=== PATIENT | female | born 1965 | race Caucasian/White ===

== ENCOUNTER → 2016-07-25 08:31 | Outpatient (CLI) | payer BC ==
[2016-07-25 10:25] LABS: BASOPHILS 0.3 % (0.0-2.0); HEMATOCRIT 41.3 % (36.0-48.0); IMMATURE GRANULOCYTES 0.2 % (0-5); LYMPHOCYTES 29.3 % (15-50); MCH 29.5 pg (26.0-34.0); MCHC 33.9 g/dL (31.0-37.0); MCV 87.1 fL (80.0-100.0); MEAN PLATELET VOLUME 10.2 fL (7.4-10.4); NEUTROPHILS 60.2 % (40-80); PLATELET COUNT 314 10x3/uL (130-400); RBC 4.74 10x6/uL (4.00-5.40); RDW 12.8 % (11.5-14.5); WBC 9.2 10x3/uL (4.8-10.8)
[2016-07-25 10:47] LABS: ANION GAP 12.8 mmol/L (8-16); BILIRUBIN - TOTAL 0.6 mg/dL (0.2-1.3); CALCIUM 9.1 mg/dL (8.5-10.1); CARBON DIOXIDE 28.7 mmol/L (21.0-32.0); CHOL - HDL RATIO 4.6 ratio (2.3-4.1); LDL-HDL RATIO 2.5 ratio (1.5-3.5); POTASSIUM - SERUM 3.5 mmol/L (3.5-5.1); PROTEIN - SERUM 7.7 g/dL (6.4-8.2); THYROID STIMULATING HORMONE 2.36 uIU/mL (0.36-3.74)
== END | disposition home or self-care (01) ==
LOC: D.LAB 08:31
PROVIDERS: Family Medicine
DX: Z00.00 Encounter for general adult medical examination without abnormal findings (principal); R00.0 Tachycardia, unspecified; R53.83 Other fatigue; R60.9 Edema, unspecified; E78.5 Hyperlipidemia, unspecified

== ENCOUNTER → 2016-07-29 07:58 | Outpatient (CLI) | payer BC | END | disposition home or self-care (01) | LOC: D.LAB 07:58 | PROVIDERS: Family Medicine | DX: R73.9 Hyperglycemia, unspecified (principal) ==

== ENCOUNTER 2018-01-13 08:00 | Outpatient (CLI) | payer BC ==
[2018-01-06 09:36] LABS: BASOPHILS 0.3 % (0-2); HEMATOCRIT 39.5 % (36.0-48.0); HEMOGLOBIN 13.7 g/dL (12-16); IMMATURE GRANULOCYTES 0.1 % (0-5); LYMPHOCYTES 27.7 % (15-50); MCHC 34.7 g/dL (31.0-37.0); MCV 86.4 fL (80.0-100.0); MEAN PLATELET VOLUME 9.7 fL (7.4-10.4); MONOCYTES 7.2 % (2-11); NEUTROPHILS 62.7 % (40-80); PLATELET COUNT 256 10x3/uL (130-400); RBC 4.57 10x6/uL (4.00-5.40); WBC 6.8 10x3/uL (4.8-10.8)
[2018-01-06 09:55] LABS: ALBUMIN 4.1 g/dL (3.4-5.0); ANION GAP 12.7 mmol/L (8-16); BILIRUBIN - TOTAL 0.52 mg/dL (0.2-1.3); CALCIUM 8.8 mg/dL (8.5-10.1); CHOL - HDL RATIO 4.9 ratio (2.3-4.1); LDL-HDL RATIO 2.8 ratio (1.5-3.5); POTASSIUM - SERUM 3.7 mmol/L (3.5-5.1); PROTEIN - SERUM 7.9 g/dL (6.4-8.2); THYROID STIMULATING HORMONE 1.63 uIU/mL (0.36-3.74)
== END 2018-01-13 22:44 | disposition home or self-care (01) ==
LOC: D.MAMMO 08:00
PROVIDERS: Family Medicine
DX: Z12.31 Encounter for screening mammogram for malignant neoplasm of breast (principal)

== ENCOUNTER → 2018-03-26 06:35 | Outpatient (CLI) | payer BC | END | disposition home or self-care (01) | LOC: D.MRI 06:35 | DX: M67.439 Ganglion, unspecified wrist (principal) ==

== ENCOUNTER 2018-04-14 09:57 | Day surgery (SDC) | payer MEDICARE ==
[~2018-04-14] VITALS: Ht 165.1 cm; Wt 74.8 kg
--- NOTE | ~2018-04-14 | OP ---
PATIENT NAME: BYRON HOBBS MEDICAL RECORD: [id number] :65 LOCATION:D.OPS ADMISSION DATE: SURGEON: TARIQ LUX DO DATE OF OPERATION: 04/14/2018 PROCEDURE PERFORMED: Right dorsal wrist ganglion excision. PREOPERATIVE DIAGNOSIS: Right dorsal wrist ganglion. POSTOPERATIVE DIAGNOSIS: Right dorsal wrist ganglion. INDICATIONS: Ms. Hobbs is a 52-year-old female who presented to my office with what appeared to be a ganglion cyst. MRI was done confirming that diagnosis. It had been bothering her for quite some time. She is tired of dealing with it and had pain with extension of the wrist and asked if I can remove it. I informed her of the risks and benefits of the procedure including bleeding, infection, damage to nerve and vessels, need for further surgery, and recurrence of the ganglion cyst. She is okay with the risk and wanted to proceed forward. SURGEON: Tariq Lux DO DESCRIPTION OF THE PROCEDURE: The patient was taken to the operative suite, laid in supine position, given general anesthetic. Right upper extremity was prepped and draped in sterile fashion. Two grams of Ancef were given to the patient prior to starting. A timeout was performed, everyone was in agreement of the correct side, site, patient and procedure. Esmarch was then used to exsanguinate the right upper extremity, tourniquet was inflated to 250 mmHg and was up for 13 minutes throughout the procedure. Once this was done, the incision was made longitudinally on the dorsal wrist over the ganglion. Dissection was made down. The ganglion was ruptured and removed down to the stalk off of the capsule. The stalk was removed and a bipolar was used to coagulate the stalk or to burn it off and then 2 stitches were put into the capsule closing the rent that was there with 2-0 Vicryl. The tourniquet was then let down after 10 mL of 0.25% Marcaine with epinephrine were injected into the site. The skin was then closed with 5-0 Monocryl, first in the inverted interrupted fashion and then running subcuticular stitch and then Steri-Strips placed over the wound. Adaptic, 4 x 4s, Kerlix and Coban were then placed on the wound. Total tourniquet time of 13 minutes. COMPLICATIONS: None. BLOOD LOSS: Minimal. TRANSINT:[id number] Voice Confirmation ID: [id number] DOCUMENT ID: [id number] TARIQ LUX DO at 1503 CC: [id number] DICTATION DATE: 04/14/181421 ASSISTANT AT SURGERY: 04/14/18 1435 REG [facility] [address] [id number]
[2018-04-14 10:19] LABS: HEMATOCRIT 39.2 % (36.0-48.0); HEMOGLOBIN 13.8 g/dL (12-16); MCH 30.5 pg (26.0-34.0); MCHC 35.2 g/dL (31.0-37.0); MCV 86.5 fL (80.0-100.0); MEAN PLATELET VOLUME 9.1 fL (7.4-10.4); RBC 4.53 10x6/uL (4.00-5.40); WBC 8.3 10x3/uL (4.8-10.8)
[2018-04-14 10:27] LABS: ANION GAP 13.9 mmol/L (8-16); CALCIUM 8.9 mg/dL (8.5-10.1); CARBON DIOXIDE 27.8 mmol/L (21.0-32.0); CREATININE - SERUM 0.9 mg/dL (0.6-1.3); POTASSIUM - SERUM 3.7 mmol/L (3.5-5.1)
[2018-04-14] MEDS ORDERED: ESTRACE1 MG PO (11:09)
[2018-04-14] MEDS ORDERED: ZOCOR20 MG PO (11:09)
[2018-04-14] MEDS ORDERED: ELAVIL25 MG PO (11:09)
[2018-04-14] MEDS ORDERED: TARKA 4-240 MG1 EACH PO (11:10)
[2018-04-14 11:19] VITALS: Ht 165.1 cm; Wt 74.8 kg
[2018-04-14] MEDS ORDERED: NORCO 7.5/325 T1 TA1 PO (14:18)
[2018-04-14] MEDS ORDERED: DURICEF500 MG PO (14:19)
== END 2018-04-14 16:30 | disposition home or self-care (01) ==
LOC: D.OPS 09:57 → D.PAN 11:30 → D.OPS 12:15
PROVIDERS: Anesthesiology
DX: M67.431 Ganglion, right wrist (principal); Z01.812 Encounter for preprocedural laboratory examination

== ENCOUNTER 2019-07-14 21:54 | Inpatient (IN) | payer MEDICARE, OTHER ==
[~2019-07-14] VITALS: Ht 165.1 cm; Wt 77.3 kg
[~2019-07-14 21:54] MED LIST: DURICEF500 MG PO; ELAVIL25 MG PO; ESTRACE1 MG PO; NORCO 7.5/325 T1 TA1 PO; TARKA 4-240 MG1 EACH PO; ZOCOR20 MG PO
[2019-07-14] MEDS ORDERED: HYDROCHLOROTHIA25 MG PO (21:58)
[2019-07-14 23:23] LABS: BASOPHILS 0.2 % (0-2); EOSINOPHILS 0.8 % (0-7); HEMOGLOBIN 12.6 g/dL (12-16); IMMATURE GRANULOCYTES 0.2 % (0-5); LYMPHOCYTES 16.2 % (15-50); MCH 29.9 pg (26.0-34.0); MCHC 34.1 g/dL (31.0-37.0); MCV 87.9 fL (80.0-100.0); MEAN PLATELET VOLUME 9.7 fL (7.4-10.4); MONOCYTES 7.7 % (2-11); NEUTROPHILS 74.9 % (40-80); PLATELET COUNT 287 10x3/uL (130-400); RBC 4.21 10x6/uL (4.00-5.40); RDW 12.7 % (11.5-14.5)
--- NOTE | 2019-07-14 23:33 | NUR ---
PT AMBULATED TO RESTROOM INDEPENDENTLY.
[2019-07-14 23:35] LABS: ANION GAP 12.8 mmol/L (8-16); CALCIUM 8.6 mg/dL (8.5-10.1); CREATININE - SERUM 0.9 mg/dL (0.6-1.3); POTASSIUM - SERUM 3.8 mmol/L (3.5-5.1)
[2019-07-14 23:41] LABS: ALBUMIN 3.6 g/dL (3.4-5.0); BILIRUBIN - TOTAL 0.5 mg/dL (0.2-1.3); MAGNESIUM - SERUM 1.7 mg/dL (1.8-2.4); PROTEIN - SERUM 7.8 g/dL (6.4-8.2)
[2019-07-15] VITALS (7 sets, daily range): BP systolic 94–132; BP diastolic 52–84; Ht 165.1 cm; Wt 77.3 kg
--- NOTE | 2019-07-15 01:10 | NUR ---
REC'D PATIENT TO ROOM. NO S/S OF DISTRESS. PATIENT DENIES NEEDS AT THIS TIME. BED IN LOWEST POSITION AND CALL LIGHT WITHIN REACH. WILL CONTINUE TO MONITOR.
--- NOTE | 2019-07-15 07:27 | NUR ---
REPORT RECEIVED. WILL CONTINUE WITH POC. PT CURRENTLY LYING SEMI FOWLERS. CALL LIGHT W/I REACH. PT IS AAO AND UP AD ANDREW. RR EVEN AND UNLABORED ON RA. L.AC PIV IS SALINE LOCKED. NO S/S OF DISTRESS NOTED. PT DENIES ANY NEEDS. WILL CTM.
--- NOTE | 2019-07-15 16:19 | NUR ---
'S NURSE CALLED TO NOTIFY THAT HE WOULD NOT BE ABLE TO SEE THE PT. WILL NOTIFY . WILL CTM.
--- NOTE | 2019-07-15 16:36 | NUR ---
PT LYING SEMI FOWLERS. CALL LIGHT W/I REACH. FAMILY AT BEDSIDE. ABX CURRENTLY INFUSING. FSBS @2874 WAS 373. ADMININSTERED ORDERED DOSE OF INSULIN. PT REPORTS OF NO PAIN AT THIS TIME. WILL CTM.
--- NOTE | 2019-07-15 19:45 | NUR ---
EVENING ROUNDS COMPLETED. VSS WITH SBP IN HIGH 90'S. WILL CTM PT. PT AAOX4. FAMILY AT BEDSIDE. NO S/S OF DISTRESS. PT C/O PAIN IN NECK AND THROAT. WILL ADMINISTER PAIN MEDS. PT DENIES ANY FURTHER NEEDS AT THIS TIME. FSBS 377.
--- NOTE | 2019-07-15 20:03 | NUR ---
PT OUT FOR CT.WILL CPOC.
--- NOTE | 2019-07-15 20:13 | NUR ---
PT BACK FROM CT. AAOX4. PT C/O OF IV HURTING CLEANED IV SITE AND TAPED. PT VOICED THANKS. CLEAN LINEN AND SHAMPOO PROVIDED FOR PT. PT DENIES ANY FURTHER NEEDS AT THIS TIME. WILL CTM. CL WITHIN REACH, BED IN LOW, SR UP X2.
[2019-07-16 01:08] VITALS: BP 85/40
--- NOTE | 2019-07-16 01:14 | NUR ---
PT'S SYSTOLIC BLOOD PRESSURE HAS STAYED IN THE LOWER 90'S. PAGED DR. LAKE. AWAITING CALL BACK. WILL CTM.
[2019-07-16 02:14] VITALS: BP 100/51
[2019-07-16 06:05] VITALS: BP 85/50
[2019-07-16 07:04] LABS: BASOPHILS 0 % (0-2); EOSINOPHILS 0 % (0-7); IMMATURE GRANULOCYTES 0.2 % (0-5); LYMPHOCYTES 8.1 % (15-50); MCH 29.8 pg (26.0-34.0); MCHC 34.4 g/dL (31.0-37.0); MCV 86.7 fL (80.0-100.0); MEAN PLATELET VOLUME 9.6 fL (7.4-10.4); MONOCYTES 2.4 % (2-11); NEUTROPHILS 89.3 % (40-80); PLATELET COUNT 262 10x3/uL (130-400); RBC 3.69 10x6/uL (4.00-5.40); RDW 12.9 % (11.5-14.5)
[2019-07-16 07:37] LABS: ALBUMIN 2.9 g/dL (3.4-5.0); ALKALINE PHOSPHATASE 71 U/L (46-116); ALT (SGPT) 30 U/L (10-68); BILIRUBIN - TOTAL 0.22 mg/dL (0.2-1.3); CALC OSMOLALITY 286 mosm/kg (275-300); CALCIUM 7.9 mg/dL (8.5-10.1); CARBON DIOXIDE 26.7 mmol/L (21.0-32.0); CHLORIDE - SERUM 103 mmol/L (98-107); CHOL - HDL RATIO 3.8 ratio (2.3-4.1); CHOLESTEROL, TOTAL 157 mg/dL (0-200); CREATININE - SERUM 0.8 mg/dL (0.6-1.3); GLUCOSE 234 mg/dL (74-106); HDL CHOLESTEROL 41 mg/dL (32-96); LDL CHOLESTEROL 94 mg/dL (0-100); LDL-HDL RATIO 2.3 ratio (1.5-3.5); PHOSPHOROUS 3.9 mg/dL (2.5-4.9); POTASSIUM - SERUM 3.3 mmol/L (3.5-5.1); PROTEIN - SERUM 6.6 g/dL (6.4-8.2); SODIUM 140 mmol/L (136-145); THYROID STIMULATING HORMONE 0.28 uIU/mL (0.36-3.74); TRIGLYCERIDE 111 mg/dL (30-200); UREA NITROGEN 13 mg/dL (7-18); eGFR NON AFRICAN AMERICAN 79 mL/min (90-120)
--- NOTE | 2019-07-16 09:00 | NUR ---
ALERT AND ORIENTED X4.IV TO RT. HAND INFUSING AT PERSCRBIED RATE. NO S/S OF HYPOTENSION NOTED. REDNESS AND EDEMA NOTED TO RT. UPPER NECK W/O AND WARMTH NOTED. RESP EVEN AND UNLABORED AND DENIES ANY DYSPNEA OR DYSPHASIA. BOWEL SOUNDS NOTED AND DENIES ANY AGUIRRE OR DISCOMFORT AT THIS TIME. ENCOURAGED TO USE CALL LIGHT FOR ASSIST.
[2019-07-16] MEDS ORDERED: SALAGEN5 MG PO (11:06)
[2019-07-16] MEDS ORDERED: HYDROCODON-ACE1 EAC7 PO (11:06)
[2019-07-16] MEDS ORDERED: AUGMENTIN 875-11 TAB PO (11:06)
[2019-07-16] MEDS ORDERED: FLORAJEN3 CAPS460 MG PO (11:07)
[2019-07-16] MEDS ORDERED: GLIMEPIRIDE1 MG PO (11:07)
[2019-07-16] MEDS ORDERED: STERAPRED 5MG 65 M1 PO ×2 (11:08→11:45)
[2019-07-16 12:20] VITALS: BP 99/49
--- NOTE | 2019-07-16 12:33 | MORECARE ---
CASE MANAGEMENT DISCHARGE SUMMARY PATIENT: BYRON HOBBS ADINA UNIT: [id number] ADM DATE: 07/15/19 AGE: 53 : 65 SEX: F ROOM/BED: D.1210 AUTHOR: JANETTE RODNEY PHYSICIAN: REFERRING PHYSICIAN: ELVIA LAKE MD DATE OF SERVICE: 07/16/19 Discharge Plan Patient Name: BYRON HOBBS Facility: [facility]:[place] : 1965 Planned Disposition: Home Anticipated Discharge Date: 07/16/19 Discharge Date: Expected LOS: 1 Initial Reviewer: [email or web address] Initial Review Date: 07/15/2019 Generated: 07/16/19 1:33 pm Patient Name: BYRON HOBBS Page [phone] at 1233 All edits/amendments must be made on the electronic document DICTATION DATE: 07/16/19 1233 OIL RIG DRILLER: JOSE 07/16/19 1233 RPT#: [id number] DC DATE: STATUS: ADM IN [facility] [address] [place] [address] END OF REPORT
--- NOTE | 2019-07-16 12:40 | MORECARE ---
CASE MANAGEMENT DISCHARGE SUMMARY PATIENT: BYRON HOBBS ADINA UNIT: [id number] ADM DATE: 07/15/19 AGE: 53 : 65 SEX: F ROOM/BED: D.1210 AUTHOR: JANETTE RODNEY PHYSICIAN: REFERRING PHYSICIAN: ELVIA LAKE MD DATE OF SERVICE: 07/16/19 Discharge Plan Patient Name: BYRON HOBBS Facility: [facility]:[place] : 1965 Planned Disposition: Home Anticipated Discharge Date: 07/16/19 Discharge Date: Expected LOS: 1 Initial Reviewer: [email or web address] Initial Review Date: 07/15/2019 Generated: 07/16/19 1:40 pm Comments DCP- Discharge Planning Updated by [id number]: Salome Sabillon on 07/16/19 11:[address] LAKE ADVISED THE CM HE WOULD BE DISCHARGING THE PATIENT TODAY FOR F/U WITH DR CARDONA, ENT , AT [facility]. CM SPOKE WITH KIARRA, THE PRIMARY NURSE , TO ARRANGE THE APPOINTMENT. CM WILL FAX DISCHARGE SUMMARY TO DR CARDONA'S OFFICE. SPOKE WITH LOI IN MEDICAL IMAGING TO OBTAIN THE COPY OF THE PATIENT'S CAT SCAN TO TAKE FOR THE F/U APPOINMENT. Last DP export: 07/16/19 11:33 a Patient Name: BYRON HOBBS Page [phone] at 1240 All edits/amendments must be made on the electronic document DICTATION DATE: 07/16/19 1240 MARRIAGE COUNSELOR: JOSE 07/16/19 1240 RPT#: [id number] DC DATE: STATUS: ADM IN [facility] [address] [place] [address] END OF REPORT
[2019-07-16] MEDS ORDERED: HUMALOG 30100 UNITS/ SC (14:50)
--- NOTE | 2019-07-16 15:24 | MORECARE ---
CASE MANAGEMENT DISCHARGE SUMMARY PATIENT: BYRON HOBBS ADINA UNIT: [id number] ADM DATE: 07/15/19 AGE: 53 : 65 SEX: F ROOM/BED: D.1210 AUTHOR: JANETTE RODNEY PHYSICIAN: REFERRING PHYSICIAN: ELVIA LAKE MD DATE OF SERVICE: 07/16/19 Discharge Plan Patient Name: BYRON HOBBS Facility: [facility]:[place] : 1965 Planned Disposition: Home Anticipated Discharge Date: 07/16/19 Discharge Date: Expected LOS: 1 Initial Reviewer: [email or web address] Initial Review Date: 07/15/2019 Generated: 07/16/19 4:23 pm Comments DCP- Discharge Planning Updated by [email or web address]: Salome Sabillon on 07/16/19 11:[address] LAKE ADVISED THE CM HE WOULD BE DISCHARGING THE PATIENT TODAY FOR F/U WITH DR CARDONA, ENT , AT [facility]. CM SPOKE WITH KIARRA, THE PRIMARY NURSE , TO ARRANGE THE APPOINTMENT. CM WILL FAX DISCHARGE SUMMARY TO DR CARDONA'S OFFICE. SPOKE WITH LOI IN MEDICAL IMAGING TO OBTAIN THE COPY OF THE PATIENT'S CAT SCAN TO TAKE FOR THE F/U APPOINMENT. DCPIA - Discharge Planning Initial Assessment Updated by [id number]: Salome Sabillon on 07/16/19 3:22 pm * Is the patient Alert and Oriented? Yes * PCP DR LAKE * Pharmacy [facility] [address] * Preadmission Environment Home with Family * ADLs Independent * Equipment None * List name and contact numbers for known caregivers / representatives who currently or will assist patient after discharge: GENE HOBBS- [facility]- [phone] * Community resources currently utilized None * Please name any agencies selected above. N/A * Additional services required to return to the preadmission environment? No * Can the patient safely return to the preadmission environment? Yes * Has this patient been hospitalized within the prior 30 days at any hospital? No Last DP export: 07/16/19 11:40 a Patient Name: BYRON HOBBS Page [phone] at 1524 All edits/amendments must be made on the electronic document DICTATION DATE: 07/16/191522 DATABASE TESTER: JOSE 07/16/191522 RPT#: [id number] DC DATE: STATUS: ADM IN [facility] [address] [place] [address] END OF REPORT
--- NOTE | 2019-07-16 15:33 | NUR ---
IV DISCONTINUED AND VERBALIZED UNDERSTANDING OF DISCHARGE INSTRUCTIONS WITH PULSE OX 94%ON ROOM AIR. STABLE AT TIME OF DISCHARGE.
--- NOTE | 2019-07-16 15:53 | MORECARE ---
CASE MANAGEMENT DISCHARGE SUMMARY PATIENT: BYRON HOBBS ADINA UNIT: [id number] ADM DATE: 07/15/19 AGE: 53 : 65 SEX: F ROOM/BED: D.1210 AUTHOR: RONEL,DOC PHYSICIAN: REFERRING PHYSICIAN: ELVIA LAKE MD DATE OF SERVICE: 07/16/19 Discharge Plan Patient Name: BYRON HOBBS Facility: [facility]:[place] : 1965 Planned Disposition: Home Anticipated Discharge Date: 07/16/19 Discharge Date: 07/16/2019 Expected LOS: 1 Initial Reviewer: [email or web address] Initial Review Date: 07/15/2019 Generated: 07/16/19 4:53 pm Comments DCP- Discharge Planning Updated by [email or web address]: Salome Sabillon on 07/16/19 2:[address] CM MET W/ THE PATIENT AT THE BEDSIDE. SHE IS BEING DISCHARGED TO HOME WITH F/U PLANNED WITH DR STEPH CARDONA AT [place], [place]. RELEASE OF INFORMATION OBTAINED TO FAX CLINICAL, DISCHARGE SUMMARY, DISCHARGE MED LIST, INPATIENT MED LIST AND X/R REPORTS. DISC WITH FILMS OBTAINED AND PROVIDED TO THE PATIENT TO TAKE TO CONSULTING MD. EXPLAINED MY ROLE. THE PATIENT CONSENTED TO SPEAK WITH CM FOR ASSESSMENT OF DISCHARGE NEEDS. SHE WAS INDEPENDENT PRIOR TO ADMISSION. DENIES ANY NEEDS AT THIS TIME. 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 HE WILL PROVIDE TRANSPORTATION TO HOME. SHE IS WEARING NASAL O2. SHE IS NOT ON OXYGEN AT HOME. CM WILL ASK PRIMARY NURSE, KIARRA, TO GET RM AIR O2 SAT. SHE FEELS SHE DOES NOT REQUIRE ANY HOME HEALTH SERVICES. SHE HAS HER DISC AT THE BEDSIDE. SHE HAS AN APPOINTMENT SCHEDULED AT DR STEPH CARDONA'S OFFICE AT [place], [place] ON Friday. DR Hayley CARDONA PHONE # [phone] FAX # [phone] CANDI FAXED DISCHARGE SUMMARY, MED LIST, LABS AND X/R REPORTS. CANDI SPOKE W/ OFFICE TO OBTAIN THE FAX NUMBER AND ADVISE OF FRIDAY APPT. PATIENT IS PRESENTLY RECEIVING A DOSE OF IV MEDICATION PRIOR TO DISCHARGE. DCP- Discharge Planning Updated by [id number]: Salome Sabillon on 07/16/19 11:[address] LAKE ADVISED THE CM HE WOULD BE DISCHARGING THE PATIENT TODAY FOR F/U WITH DR CARDONA, ENT , AT [facility]. CM SPOKE WITH KIARRA, THE PRIMARY NURSE , TO ARRANGE THE APPOINTMENT. CM WILL FAX DISCHARGE SUMMARY TO DR CARDONA'S OFFICE. SPOKE WITH LOI IN MEDICAL IMAGING TO OBTAIN THE COPY OF THE PATIENT'S CAT SCAN TO TAKE FOR THE F/U APPOINMENT. DCPIA - Discharge Planning Initial Assessment Updated by [id number]: Salome Sabillon on 07/16/19 3:22 pm * Is the patient Alert and Oriented? Yes * PCP DR LAKE * [facility] [address] * Preadmission Environment Home with Family * ADLs Independent * Equipment None * List name and contact numbers for known caregivers / representatives who currently or will assist patient after discharge: GENE HOBBS- [facility]- [phone] * Community resources currently utilized None * Please name any agencies selected above. N/A * Additional services required to return to the preadmission environment? No * Can the patient safely return to the preadmission environment? Yes * Has this patient been hospitalized within the prior 30 days at any hospital? No Last DP export: 07/16/19 2:24 p Patient Name: BYRON HOBBS Page [phone] at 1553 All edits/amendments must be made on the electronic document DICTATION DATE: 07/16/191552 SEXTON HELPER: JOSE 07/16/19 155 RPT#: [id number] DC DATE:07/16/19 STATUS: DIS IN [facility] [address] [place] [address] END OF REPORT
--- NOTE | 2019-07-18 12:43 | MORECARE ---
CASE MANAGEMENT DISCHARGE SUMMARY PATIENT: BYRON HOBBS ADINA UNIT: [id number] ADM DATE: 07/15/19 AGE: 53 : 65 SEX: F ROOM/BED: D.1210 AUTHOR: RONEL,DOC PHYSICIAN: REFERRING PHYSICIAN: ELVIA LAKE MD DATE OF SERVICE: 07/18/19 Discharge Plan Patient Name: BYRON HOBBS Facility: [facility]:[place] : 1965 Planned Disposition: Home Anticipated Discharge Date: 07/16/19 Discharge Date: 07/16/2019 Expected LOS: 1 Initial Reviewer: [email or web address] Initial Review Date: 07/15/2019 Generated: 07/18/19 1:42 pm Comments DCP- Discharge Planning Updated by [id number]: Salome Sabillon on 07/16/19 2:[address] CM MET W/ THE PATIENT AT THE BEDSIDE. SHE IS BEING DISCHARGED TO HOME WITH F/U PLANNED WITH DR STEPH CARDONA AT [place], [place]. RELEASE OF INFORMATION OBTAINED TO FAX CLINICAL, DISCHARGE SUMMARY, DISCHARGE MED LIST, INPATIENT MED LIST AND X/R REPORTS. DISC WITH FILMS OBTAINED AND PROVIDED TO THE PATIENT TO TAKE TO CONSULTING MD. EXPLAINED MY ROLE. THE PATIENT CONSENTED TO SPEAK WITH CM FOR ASSESSMENT OF DISCHARGE NEEDS. SHE WAS INDEPENDENT PRIOR TO ADMISSION. DENIES ANY NEEDS AT THIS TIME. 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 HE WILL PROVIDE TRANSPORTATION TO HOME. SHE IS WEARING NASAL O2. SHE IS NOT ON OXYGEN AT HOME. CM WILL ASK PRIMARY NURSE, KIARRA, TO GET RM AIR O2 SAT. SHE FEELS SHE DOES NOT REQUIRE ANY HOME HEALTH SERVICES. SHE HAS HER DISC AT THE BEDSIDE. SHE HAS AN APPOINTMENT SCHEDULED AT DR STEPH CARDONA'S OFFICE AT [place], [place] ON Friday. DR Hayley CARDONA PHONE # [phone] FAX # [phone] CANDI FAXED DISCHARGE SUMMARY, MED LIST, LABS AND X/R REPORTS. CANDI SPOKE W/ OFFICE TO OBTAIN THE FAX NUMBER AND ADVISE OF FRIDAY APPT. PATIENT IS PRESENTLY RECEIVING A DOSE OF IV MEDICATION PRIOR TO DISCHARGE. DCP- Discharge Planning Updated by [id number]: Salome Sabillon on 07/16/19 11:[address] LAKE ADVISED THE CM HE WOULD BE DISCHARGING THE PATIENT TODAY FOR F/U WITH DR CARDONA, ENT , AT [facility]. CM SPOKE WITH KIARRA, THE PRIMARY NURSE , TO ARRANGE THE APPOINTMENT. CM WILL FAX DISCHARGE SUMMARY TO DR CARDONA'S OFFICE. SPOKE WITH LOI IN MEDICAL IMAGING TO OBTAIN THE COPY OF THE PATIENT'S CAT SCAN TO TAKE FOR THE F/U APPOINMENT. DCPIA - Discharge Planning Initial Assessment Updated by [id number]: Salome Sabillon on 07/16/19 3:22 pm * Is the patient Alert and Oriented? Yes * PCP DR LAKE * [facility] [address] * Preadmission Environment Home with Family * ADLs Independent * Equipment None * List name and contact numbers for known caregivers / representatives who currently or will assist patient after discharge: GENE HOBBS- [facility]- [phone] * Community resources currently utilized None * Please name any agencies selected above. N/A * Additional services required to return to the preadmission environment? No * Can the patient safely return to the preadmission environment? Yes * Has this patient been hospitalized within the prior 30 days at any hospital? No Last DP export: 07/16/19 2:53 p Patient Name: BYRON HOBBS Page [phone] at 1243 All edits/amendments must be made on the electronic document DICTATION DATE: 07/18/191241 DISPENSING OPTICIAN APPRENTICE: JOSE 07/18/19 1242 RPT#: [id number] DC DATE:07/16/19 STATUS: DIS IN [facility] [address] [place] [address] END OF REPORT
== END 2019-07-16 15:33 | disposition home or self-care (01) | DRG 156 ==
LOC: D.ER 21:54 → D.M3 22:49 → OBSVTIME 22:49 → D.M3 22:49
PROVIDERS: Emergency Medicine; ADMIT Family Medicine; ATTEND Family Medicine
DX: K11.21 Acute sialoadenitis (principal); R13.10 Dysphagia, unspecified; Z78.0 Asymptomatic menopausal state; I10 Essential (primary) hypertension; E11.9 Type 2 diabetes mellitus without complications; K11.5 Sialolithiasis; E04.1 Nontoxic single thyroid nodule

== ENCOUNTER → 2019-07-27 19:34 | Outpatient (CLI) | payer MEDICARE ==
[2019-07-15 02:13] VITALS: BMI 28.3
[~2019-07-27 19:34] MED LIST changes: +AUGMENTIN 875-11 TAB PO; +FLORAJEN3 CAPS460 MG PO; +GLIMEPIRIDE1 MG PO; +HUMALOG 30100 UNITS/ SC; +HYDROCHLOROTHIA25 MG PO; +HYDROCODON-ACE1 EAC7 PO; +SALAGEN5 MG PO; +STERAPRED 5MG 65 M1 PO
== END | disposition home or self-care (01) ==
LOC: D.MAMMO 08:00
PROVIDERS: ATTEND Family Medicine
DX: Z12.31 Encounter for screening mammogram for malignant neoplasm of breast (principal)